=== PATIENT | male | born 1970 | race American Indian/Alaskan Native ===

== ENCOUNTER 2019-07-08 23:39 | Emergency (ER) | payer SELFPAY ==
[2019-07-08] MEDS ORDERED: ZIPRASIDONE MESYLATE 20 MG VIAL IM ONE ×2 (23:44→23:50)
[2019-07-08] MEDS ORDERED: SODIUM CHLORIDE 0.9% 1000 ML 1,000 ML ONE (23:49)
[2019-07-08] MEDS ORDERED: SODIUM CHLORIDE 0.9% 1000 ML 1,000 ML IV ONE ×2 (23:50)
[2019-07-09] MEDS ORDERED: LORazepam 2 MG/ML VIAL IV ONE (00:07)
[2019-07-09] MEDS ORDERED: LORazepam 2 MG/ML VIAL ONE (00:10)
[2019-07-09 00:35] LABS: Calcium 10.3 mg/dL (8.4-10.2)
[2019-07-09 00:38] LABS: Basophils # (Auto) 0.1 K/mm3 (0.0-0.1); Basophils % (Auto) 0.8 % (0.0-1.8); Eosinophils % (Auto) 0.1 % (0.0-4.3); Hematocrit 47.8 % (35.5-45.6); Hemoglobin 15.7 gm/dl (11.8-15.2); Lymphocytes # (Auto) 2.1 K/mm3 (1.2-5.4); Lymphocytes % (Auto) 16.3 % (13.4-35.0); Mean Corpuscular HGB Conc 33 % (32-34); Mean Corpuscular Volume 90 fl (84-94); Monocytes # (Auto) 0.7 K/mm3 (0.0-0.8); Platelet Count 352 K/mm3 (140-440); Red Blood Count 5.34 M/mm3 (3.65-5.03); Red Cell Distribution Width 13.5 % (13.2-15.2)
[2019-07-09 02:38] LABS: Amphetamine Screen,Urine PRESUMPTIVE NEGATIVE; Benzodiazepines Screen,Urine PRESUMPTIVE NEGATIVE; Cannabinoid Screen,Urine PRESUMPTIVE NEGATIVE; Methadone Screen,Urine PRESUMPTIVE NEGATIVE; Opiate Screen,Urine PRESUMPTIVE NEGATIVE
[2019-07-09 02:45] LABS: Cocaine Screen,Urine PRESUMPTIVE POSITIVE
[2019-07-09 02:47] LABS: Bacteria,Urine 1+ /HPF (Negative); Bilirubin,Urine NEG (Negative); Blood,Urine MOD (Negative); Color,Urine Yellow (Yellow); Mucus,Urine FEW /HPF; Protein,Urine <15 mg/dL mg/dL (Negative); Urobilinogen,Urine < 2.0 mg/dL (<2.0)
--- NOTE | 2019-07-09 03:01 | Emergency Department Report ---
ED Psych HPI - General Chief Complaint: Altered Mental Status Stated Complaint: AMS Time Seen by Provider: 07/08/19 23:50 Source: EMS Mode of arrival: Stretcher - History of Present Illness Initial Comments: Patient is a 48-year-old F Martiniqu[place] male with a past medical history of schizophrenia according to the patient who is presenting with paranoia. Patient called paramedics himself and on their arrival at his hands and was repeating the phrase "I surrender". Patient states that he is surrendering to all police and authorities. Patient was repeating this phrase again and again. Patient likely as stated that he surrender's approximately 100 times between triage and being placed in the room. Patient will answer other questions however he is is continued to follow-up answering other questions by saying he is a renders. Patient initially would not answer the question whether he has taken any drugs with little answer his name his girlfriend's name date of and other factual questions. Patient is arrived with his hands in the air and would not put his hands down for approximately 10 minutes. Was able to [place] to allow us to draw blood and put his arms down. - Related Data Allergies Allergy/AdvReac Type Severity Reaction Status Date / Time lisinopril Allergy Hives Verified 07/09/19 00:38 ED Review of Systems ROS: Stated complaint: AMS Other details as noted in HPI Comment: All other systems reviewed and negative ED Past Medical Hx - Past Medical History Previous Medical History?: Yes Hx Hypertension: Yes ED Physical Exam - General Limitations: Altered Mental Status General appearance: alert, anxious - Head Head exam: Present: atraumatic, normocephalic - Eye Eye exam: Present: normal appearance, PERRL, EOMI - ENT ENT exam: Present: mucous membranes moist - Neck Neck exam: Present: normal inspection - Respiratory Respiratory exam: Present: normal lung sounds bilaterally. Absent: respiratory distress, wheezes, rales, rhonchi - Cardiovascular Cardiovascular Exam: Present: normal rhythm, tachycardia. Absent: systolic murmur, diastolic murmur, rubs, gallop - GI/Abdominal GI/Abdominal exam: Present: soft, normal bowel sounds. Absent: distended, tenderness, guarding, rebound - Rectal Rectal exam: Present: deferred - Extremities Exam Extremities exam: Present: normal inspection - Back Exam Back exam: Present: normal inspection - Neurological Exam Neurological exam: Present: alert, oriented X3 - Psychiatric Psychiatric exam: Present: normal affect, normal mood - Skin Skin exam: Present: warm, dry, intact, normal color. Absent: rash ED Course Vital Signs 07/08/19 07/09/19 07/09/19 23:51 00:20 01:06 Temperature 98.4 F 98.4 F Pulse Rate 160 H 149 H 123 H Respiratory 20 24 20 Rate Blood Pressure 186/115 153/90 138/73 [Left] O2 Sat by Pulse 98 99 97 Oximetry 07/09/19 07/09/19 07/09/19 01:49 02:22 03:16 Temperature Pulse Rate 102 H 94 H Respiratory 18 16 17 Rate Blood Pressure 130/64 124/70 [Left] O2 Sat by Pulse 98 98 99 Oximetry - Reevaluation(s) Reevaluation #1: 07/09/19 03:02 Patient was given Geodon for some mild agitation as well as Ativan. Started on IV fluids. Patient did appear to have a dry mouth. Patient's laboratory studies show that he is intoxicated with cocaine which is likely leading to some mild psychosis and paranoia. At this time the patient's heart rate is decreased to 100 and he is sleeping. Patient will be reassessed in the morning for need for continued psychiatric holding. Reevaluation #2: 07/09/19 04:13 At this point the patient is completely lucid. He does admit to cocaine use. He is no longer exhibiting any evidence of paranoia. Patient be discharged ED Medical Decision Making - Lab Data Result diagrams: 07/08/19 23:55 07/08/19 23:55 Lab Results 07/08/19 07/08/19 07/08/19 Range/Units 22:23 23:55 23:55 WBC 13.2 H (4.5-11.0) K/mm3 RBC 5.34 H (3.65-5.03) M/mm3 Hgb 15.7 H (11.8-15.2) gm/dl Hct 47.8 H (35.5-45.6) % MCV 90 (84-94) fl MCH 29 (28-32) pg MCHC 33 (32-34) % RDW 13.5 (13.2-15.2) % Plt Count 352 (140-440) K/mm3 Lymph % (Auto) 16.3 (13.4-35.0) % Blanco % (Auto) 5.0 (0.0-7.3) % Eos % (Auto) 0.1 (0.0-4.3) % Baso % (Auto) 0.8 (0.0-1.8) % Lymph # 2.1 (1.2-5.4) K/mm3 Blanco # 0.7 (0.0-0.8) K/mm3 Eos # 0.0 (0.0-0.4) K/mm3 Baso # 0.1 (0.0-0.1) K/mm3 Seg Neutrophils % 77.8 H (40.0-70.0) % Seg Neutrophils # 10.3 H (1.8-7.7) K/mm3 Sodium 136 L (137-145) mmol/L Potassium 4.5 (3.6-5.0) mmol/L Chloride 95.9 L (98-107) mmol/L Carbon Dioxide 17 L (22-30) mmol/L Anion Gap 28 mmol/L BUN 17 (9-20) mg/dL Creatinine 1.8 H (0.8-1.5) mg/dL Estimated GFR 49 ml/min BUN/Creatinine Ratio 9 % Glucose 179 H (75-100) mg/dL Calcium 10.3 H (8.4-10.2) mg/dL TSH (0.270-4.200) mlU/mL Urine Color (Yellow) Urine Turbidity (Clear) Urine pH (5.0-7.0) Ur Specific [place] (1.003-1.030) Urine Protein (Negative) mg/dL Urine Glucose (UA) (Negative) mg/dL Urine Ketones (Negative) mg/dL Urine Blood (Negative) Urine Nitrite (Negative) Urine Bilirubin (Negative) Urine Urobilinogen (<2.0) mg/dL Ur Leukocyte Esterase (Negative) Urine WBC (Auto) (0.0-6.0) /HPF Urine RBC (Auto) (0.0-6.0) /HPF U Epithel Cells (Auto) (0-13.0) /HPF Urine Bacteria (Auto) (Negative) /HPF Urine Mucus /HPF Salicylates (2.8-20.0) mg/dL Urine Opiates Screen Urine Methadone Screen Acetaminophen (10.0-30.0) ug/mL Ur Barbiturates Screen Ur Phencyclidine Scrn Ur Amphetamines Screen U Benzodiazepines Scrn Urine Cocaine Screen U Marijuana (THC) Screen Drugs of Abuse Note Plasma/Serum Alcohol < 0.01 (0-0.07) % 07/08/19 07/08/19 07/08/19 Range/Units 23:55 23:55 23:55 WBC (4.5-11.0) K/mm3 RBC (3.65-5.03) M/mm3 Hgb (11.8-15.2) gm/dl Hct (35.5-45.6) % MCV (84-94) fl MCH (28-32) pg MCHC (32-34) % RDW (13.2-15.2) % Plt Count (140-440) K/mm3 Lymph % (Auto) (13.4-35.0) % Blanco % (Auto) (0.0-7.3) % Eos % (Auto) (0.0-4.3) % Baso % (Auto) (0.0-1.8) % Lymph # (1.2-5.4) K/mm3 Bl[place] # (0.0-0.8) K/mm3 Eos # (0.0-0.4) K/mm3 Baso # (0.0-0.1) K/mm3 Seg Neutrophils % (40.0-70.0) % Seg Neutrophils # (1.8-7.7) K/mm3 Sodium (137-145) mmol/L Potassium (3.6-5.0) mmol/L Chloride (98-107) mmol/L Carbon Dioxide (22-30) mmol/L Anion Gap mmol/L BUN (9-20) mg/dL Creatinine (0.8-1.5) mg/dL Estimated GFR ml/min BUN/Creatinine Ratio % Glucose (75-100) mg/dL Calcium (8.4-10.2) mg/dL TSH 2.140 (0.270-4.200) mlU/mL Urine Color (Yellow) Urine Turbidity (Clear) Urine pH (5.0-7.0) Ur Specific [place] (1.003-1.030) Urine Protein (Negative) mg/dL Urine Glucose (UA) (Negative) mg/dL Urine Ketones (Negative) mg/dL Urine Blood (Negative) Urine Nitrite (Negative) Urine Bilirubin (Negative) Urine Urobilinogen (<2.0) mg/dL Ur Leukocyte Esterase (Negative) Urine WBC (Auto) (0.0-6.0) /HPF Urine RBC (Auto) (0.0-6.0) /HPF U Epithel Cells (Auto) (0-13.0) /HPF Urine Bacteria (Auto) (Negative) /HPF Urine Mucus /HPF Salicylates < 0.3 L (2.8-20.0) mg/dL Urine Opiates Screen Urine Methadone Screen Acetaminophen < 5.0 L (10.0-30.0) ug/mL Ur Barbiturates Screen Ur Phencyclidine Scrn Ur Amphetamines Screen U Benzodiazepines Scrn Urine Cocaine Screen U Marijuana (THC) Screen Drugs of Abuse Note Plasma/Serum Alcohol (0-0.07) % 07/09/19 07/09/19 Range/Units 01:37 01:37 WBC (4.5-11.0) K/mm3 RBC (3.65-5.03) M/mm3 Hgb (11.8-15.2) gm/dl Hct (35.5-45.6) % MCV (84-94) fl MCH (28-32) pg MCHC (32-34) % RDW (13.2-15.2) % Plt Count (140-440) K/mm3 Lymph % (Auto) (13.4-35.0) % [place] % (Auto) (0.0-7.3) % Eos % (Auto) (0.0-4.3) % Baso % (Auto) (0.0-1.8) % Lymph # (1.2-5.4) K/mm3 [place] # (0.0-0.8) K/mm3 Eos # (0.0-0.4) K/mm3 Baso # (0.0-0.1) K/mm3 Seg Neutrophils % (40.0-70.0) % Seg Neutrophils # (1.8-7.7) K/mm3 Sodium (137-145) mmol/L Potassium (3.6-5.0) mmol/L Chloride (98-107) mmol/L Carbon Dioxide (22-30) mmol/L Anion Gap mmol/L BUN (9-20) mg/dL Creatinine (0.8-1.5) mg/dL Estimated GFR ml/min BUN/Creatinine Ratio % Glucose (75-100) mg/dL Calcium (8.4-10.2) mg/dL TSH (0.270-4.200) mlU/mL Urine Color Yellow (Yellow) Urine Turbidity Clear (Clear) Urine pH 5.0 (5.0-7.0) Ur Specific [place] 1.011 (1.003-1.030) Urine Protein <15 mg/dl (Negative) mg/dL Urine Glucose (UA) Neg (Negative) mg/dL Urine Ketones Neg (Negative) mg/dL Urine Blood Mod (Negative) Urine Nitrite Neg (Negative) Urine Bilirubin Neg (Negative) Urine Urobilinogen < 2.0 (<2.0) mg/dL Ur Leukocyte Esterase Neg (Negative) Urine WBC (Auto) 2.0 (0.0-6.0) /HPF Urine RBC (Auto) 2.0 (0.0-6.0) /HPF U Epithel Cells (Auto) < 1.0 (0-13.0) /HPF Urine Bacteria (Auto) 1+ (Negative) /HPF Urine Mucus Few /HPF Salicylates (2.8-20.0) mg/dL Urine Opiates Screen Presumptive negative Urine Methadone Screen Presumptive negative Acetaminophen (10.0-30.0) ug/mL Ur Barbiturates Screen Presumptive negative Ur Phencyclidine Scrn Presumptive negative Ur Amphetamines Screen Presumptive negative U Benzodiazepines Scrn Presumptive negative Urine Cocaine Screen Presumptive positive U Marijuana (THC) Screen Presumptive negative Drugs of Abuse Note Disclamer Plasma/Serum Alcohol (0-0.07) % - EKG Data -: EKG Interpreted by Me EKG shows normal: sinus rhythm, axis, intervals, QRS complexes, ST-T waves Rate: tachycardia Critical care attestation.: If time is entered above; I have spent that time in minutes in the direct care of this critically ill patient, excluding procedure time. ED Disposition Clinical Impression: Cocaine abuse Drug-induced psychotic disorder Qualifiers: Complication of substance-induced condition: with unspecified complication Qualified Code(s): F19.959 - Other psychoactive substance use, unspecified with psychoactive substance-induced psychotic disorder, unspecified Disposition: DC-01 TO HOME OR SELFCARE Is pt being admited?: No Does the pt Need Aspirin: No Condition: Stable Instructions: Cocaine Abuse (ED) Referrals: PRIMARY CARE, [Primary Care Provider] - 3-5 Days Time of Disposition: 04:15
[2019-07-09 03:17] VITALS: BP 124/70
== END 2019-07-09 04:57 | disposition home or self-care (01) ==
LOC: ED 23:39
DX: F14.10 Cocaine abuse, uncomplicated (principal); F19.959 Other psychoactive substance use, unspecified with psychoactive substance-induced psychotic disorder, unspecified; R41.82 Altered mental status, unspecified; I10 Essential (primary) hypertension; Z79.899 Other long term (current) drug therapy; Z88.8 Allergy status to other drugs, medicaments and biological substances
CPT/HCPCS: 36415; 80048; 80307; 81001; 84443; 85025; 93005; 96361; 96372; 96374; 99285; J2060; J3486; J7030; 80320; G0480